=== PATIENT | female | born 1955 | race Caucasian/White ===

== ENCOUNTER → 2022-11-27 09:49 | Outpatient (BNVA) | payer MEDICARE, SELFPAY | PROVIDERS: Family Provider Family Medicine; PCP Family Medicine; Visit Provider Family Medicine | DX: J01.00 Acute maxillary sinusitis, unspecified (principal); J03.90 Acute tonsillitis, unspecified | CPT/HCPCS: 87071; 87400; 87880 ==

== ENCOUNTER 2023-03-09 16:05 | Emergency (ER) | payer MEDICARE, SELFPAY ==
[2023-03-09 16:22] VITALS: BP 197/86; PULSE 73; RESP 16; TEMP 36.7; O2SAT 97
--- NOTE | 2023-03-09 16:31 | ECG_ITS ---
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 Measurements Intervals [place] Rate: 66 P: 69 ND: 157 QRS: 12 QRSD: 132 T: 145 QT: 432 QTc: 456 Interpretive Statements SINUS RHYTHM POSSIBLE RIGHT ATRIAL ENLARGEMENT [0.25mV P-WAVE] POSSIBLE LEFT ATRIAL ENLARGEMENT [-0.1mV P-WAVE IN V1/V2] INTRAVENTRICULAR CONDUCTION DELAY [130+ ms QRS DURATION] LEFT VENTRICULAR HYPERTROPHY AND ST-T CHANGE [VOLTAGE CRITERIA PLUS ST/T ABNORMALITY] Diffuse nonspecific T wave changes POSSIBLE SEPTAL MYOCARDIAL INFARCTION , OF INDETERMINATE AGE [30 ms Q WAVE IN V1/V2] INTERPRETATION BASED ON A DEFAULT AGE OF 40 YEARS No previous ECG available for comparison Electronically Signed On 03-09-2023 23:43:46 CDT by Savanah Dubon M.D. [id number] luis armando
--- NOTE | 2023-03-09 17:24 | CTR_ITS ---
PROCEDURE INFORMATION: Exam: CT Abdomen And Pelvis Without Contrast Exam date and time: 03/09/2023 6:15 PM Age: 67 years old Clinical indication: Abdominal pain; Generalized; Prior surgery; Surgery date: 6+ months; Surgery type: Hyst, 2x TECHNIQUE: Imaging protocol: Computed tomography of the abdomen and pelvis without contrast. Radiation optimization: All CT scans at this facility use at least one of these dose optimization techniques: automated exposure control; mA and/or kV adjustment per patient size (includes targeted exams where dose is matched to clinical indication); or iterative reconstruction. REPORTING DATA: Count of CT and Cardiac NM exams in prior 12 months: This patient has received 0 known CTs and 0 known cardiac nuclear medicine studies in the 12 months prior to the current study. COMPARISON: CR (CHEST, ) 03/09/2023 5:47 PM RADIATION DOSE METRICS: Total DLP (mGy-cm): 495.43 FINDINGS: Liver: Normal. No mass. Gallbladder and bile ducts: Normal. No calcified stones. No ductal dilation. Pancreas: Normal. No ductal dilation. Spleen: Normal. No splenomegaly. Adrenal glands: Normal. No mass. Kidneys and ureters: Left kidney punctate nonobstructing calyceal stone. Stomach and bowel: Prominent fluid in the small bowel without dilation may reflect an enteritis. Constipation. Appendix: No evidence of appendicitis. Intraperitoneal space: Unremarkable. No free air. No significant fluid collection. Vasculature: Unremarkable. No abdominal aortic aneurysm. Lymph nodes: Unremarkable. No enlarged lymph nodes. Urinary bladder: Unremarkable as visualized. Reproductive: Unremarkable as visualized. Bones/joints: Unremarkable. No acute fracture. Soft tissues: Unremarkable. Right lung bulla incompletely visualized. CT/CT abdomen pelvis wo con [id number] IMPRESSION: 1. Negative for acute inflammatory process in the or pelvis. 2. Prominent fluid in the small bowel without dilation may reflect an enteritis. 3. Constipation. 4. Left kidney punctate nonobstructing calyceal stone. 5. Right lung bulla incompletely visualized.
--- NOTE | 2023-03-09 17:24 | XRR_ITS ---
PROCEDURE INFORMATION: Exam: XR Chest Exam date and time: 03/09/2023 5:47 PM Age: 67 years old Clinical indication: Cough; Additional info: Dyspnea/cough TECHNIQUE: Imaging protocol: Radiologic exam of the chest. Views: 1 view. COMPARISON: No relevant prior studies available. FINDINGS: Lungs: Unremarkable. No consolidation. Pleural spaces: Unremarkable. No pleural effusion. No pneumothorax. Heart/Mediastinum: Unremarkable. No cardiomegaly. Bones/joints: Unremarkable. XR/XR chest 1V portable [id number] IMPRESSION: No acute findings.
--- NOTE | 2023-03-09 17:30 | W.ED.ABDPA2 ---
Documented by User: Jaycob Brar DO 03/10/23 04:52 HPI - Abdominal Pain General: Chief Complaint: Abdominal Pain Stated Complaint: abd pains, Weakness, Black Stool Time Seen by Provider: 03/09/23 17:24 Source: patient Mode of arrival: ambulatory History of Present Illness: 67-year-old female presents to the emergency room complaining of abdominal pain for last 2 weeks with nausea and vomiting she been taking Pepto-Bismol and then milk of magnesia states he had not had any relief with those she switched from Pepto-Bismol to milk of magnesia because she was not having regular bowel movements now she is began having black stools. She has worse pain with eating. She not had any hematemesis or coffee-ground emesis. No previous history of GI bleeds. She do she uses regularly use medical marijuana. Previous abdominal history includes C-sections and hysterectomy. She has noticed her symptoms are worse when she eats. MD elicited complaint: abdominal pain Onset (ago): week(s) (2) Pain Consistency: intermittent Location: Epigastric Quality: cramping Exacerbating factors: nothing Relieving factors: nothing Associated Symptoms: Reports change in stool character, GI cramping, dyspepsia, melena (Black), nausea and poor appetite; Denies anorexia, belching, bloating, change in bowel habits, chills, coffee ground emesis, constipation, diarrhea, dysuria, excessive flatus, fever(s), heartburn, hematochezia, hematuria, hematemesis, fecal incontinence, loose stools, syncope and vomiting Review of Systems Const: Denies: fever(s) or chills Card: Denies: syncope GI: Reports: nausea, GI cramping, change in stool character and melena (Black); Denies: vomiting, hematemesis, coffee ground emesis, heartburn, diarrhea, constipation, bloating, belching, excessive flatus, fecal incontinence, change in bowel habits or hematochezia : Denies: dysuria or hematuria PFSH ED PFSH: Social History Smoking and tobacco status: current every day smoker cigarettes Alcohol intake: never Physical Exam Const: GENERAL APPEARANCE: cooperative and comfortable ORIENTATION/CONSCIOUSNESS: Yes awake, Yes oriented to person, Yes oriented to place and Yes oriented to time HENMT: COMMON NORMALS: normocephalic, atraumatic and hearing grossly normal bilaterally HEAD & SCALP: normocephalic and atraumatic Resp: COMMON NORMALS: normal respiratory effort, No retractions, No use of accessory muscles and clear to auscultation bilaterally AUSCULTATION: clear to auscultation bilaterally Cardio: COMMON NORMALS: regular rate, regular rhythm and No murmurs present (Cardio) RATE: regular rate RHYTHM: regular rhythm GI: COMMON NORMALS: Soft to palpation and No hepatosplenomegaly present AUSCULTATION: Yes normoactive bowel sounds PALPATION: Yes Soft to palpation, No Tenderness to palpation present (GI), No Guarding due to palpation present (GI) and Yes No hepatosplenomegaly present Extremity: COMMON NORMALS: normal to inspection, capillary refill normal, no clubbing, cyanosis or edema, no calf tenderness and no pedal edema Neuro: SENSORIUM/ORIENTATION: Yes oriented to person, Yes oriented to place and Yes oriented to time Skin: COMMON NORMALS: no rashes or lesions noted GENERAL SKIN EXAM: no rashes or lesions noted Course Vital Signs: Vital signs: Vital Signs Temperature 98.0 F 03/09/23 16:22 Pulse Rate 66 03/09/23 19:03 Respiratory Rate 17 03/09/23 19:03 Blood Pressure 194/90 03/09/23 19:03 Pulse Oximetry 94 03/09/23 19:03 MDM - Abdominal Pain Medical Decision Making Care signed out to Dr. Castanon at change of shift. See final notes for diagnosis and disposition. Patient presents abdominal pain she is also concerned of GI bleed she had black stools. She had been taking Pepto-Bismol is likely cause for her black stools her BUN to creatinine ratio here is normal her hemoglobin is normal I did a rectal exam showed brown stool was Hemoccult negative. CT scan does show a enteritis with constipation likely causing her pain she has no signs of acute surgical abdomen she is stable for discharge at this time we will place her on MiraLAX Zofran she is to follow-up with PCP and return if worsening. Lab Data 03/09/23 17:30 03/09/23 17:30 Labs/Radiology: Radiology Impressions Abdomen/Pelvis CT 03/09/23 17:24 IMPRESSION: 1. Negative for acute inflammatory process in the or pelvis. 2. Prominent fluid in the small bowel without dilation may reflect an enteritis. 3. Constipation. 4. Left kidney punctate nonobstructing calyceal stone. 5. Right lung bulla incompletely visualized. Chest X-Ray 03/09/23 17:24 IMPRESSION: No acute findings. Laboratory Results WBC 8.9 10^3/uL (4.0-10.0) 03/09/23 17: RBC 5.33 10^6/uL (4.1-5.3) H 03/09/23 17:30 Hgb 15.4 g/dL (11.5-15.3) H 03/09/23: Hct 46.7 % (37.0-47.0) 03/09/23: MCV 87.6 fl (81-99) 03/09/23: MCH 28.9 pg (28.0-34.0) 03/09/23: MCHC 33.0 g/dL (30.0-36.0) 03/09/23: RDW 13.2 % (12.1-15.1) 03/09/23: Plt Count 207 10^3/cmm (130-400) 03/09/23: MPV 11.0 fL (7.4-10.4) H 03/09/23 17: Neut % (Auto) 56.5 % 03/09/23: Lymph % (Auto) 34.2 % 03/09/23: [place] % (Auto) 8.0 % 03/09/23: Eos % (Auto) 0.7 % 03/09/23: Baso % (Auto) 0.4 % 03/09/23:30 Neut # (Auto) 5.03 10^3/uL (1.8-7.7) 03/09/23: Lymph # (Auto) 3.1 10^3/uL (0.8-4.8) 03/09/23 17:30 [place] # (Auto) 0.7 10^3/uL (0.2-0.9) 03/09/23 17:30 Eos # (Auto) 0.1 10^3/uL (0.0-0.8) 03/09/23 17:30 Baso # (Auto) 0.0 10^3/uL (0.0-0.1) 03/09/23 17:30 Nucleated RBC % (auto) 0 % 03/09/23 17:30 Nucleated RBCs # 0.0 /100WBC 03/09/23 17:30 Sodium 135 mmol/L (136-145) L 03/09/23 17:30 Potassium 3.7 mmol/L (3.5-5.1) 03/09/23 17:30 Chloride 95 mmol/L (98-107) L 03/09/23 17:30 Carbon Dioxide 31 mmol/L (22-29) H 03/09/23 17:30 Anion Gap 12.7 (5-19) 03/09/23 17:30 BUN 11 mg/dL (8-23) 03/09/23 17:30 Creatinine 0.7 mg/dL (0.5-0.9) 03/09/23 17:30 GFR Calculation 83.7 mL/min (90-130) L 03/09/23 17:30 Glucose 120 mg/dL (65-115) H 03/09/23 17:30 Calculated Osmolality 281 mOsm/kg (285-295) L 03/09/23 17:30 Calcium 9.3 mg/dL (8.5-10.5) 03/09/23 17:30 Total Bilirubin 0.2 mg/dL (0.15-1.2) 03/09/23 17:30 AST 18 U/L (0-32) 03/09/23 17:30 ALT 10 U/L (0-33) 03/09/23 17:30 Alkaline Phosphatase 94 U/L (35-105) 03/09/23 17:30 Total Protein 7.7 g/dL (6.6-8.7) 03/09/23 17:30 Albumin 4.4 g/dL (3.5-5.2) 03/09/23 17:30 Globulin 3.3 g/dL (1.3-4.6) 03/09/23 17:30 Urine Color Yellow (Yellow) 03/09/23 16:14 Urine Appearance Clear (CLEAR) 03/09/23 16:14 Urine pH 9 (5-7) H 03/09/23 16:14 Ur Specific [place] 1.015 (1.005-1.030) 03/09/23 16:14 Urine Protein Neg (Negative) 03/09/23 16:14 Urine Glucose (UA) Norm (Normal) 03/09/23 16:14 Urine Ketones Negative (Negative) 03/09/23 16:14 Urine Blood Neg (Negative) 03/09/23 16:14 Urine Nitrate Negative (Negative) 03/09/23 16:14 Urine Bilirubin Neg (Negative) 03/09/23 16:14 Prot Sulfosalicylic Acd Negative (Negative) 03/09/23 16:14 Urine Urobilinogen Neg mg/dL (Negative) 03/09/23 16:14 Ur Leukocyte Esterase Negative (Negative) 03/09/23 16:14 Discharge Plan Discharge Patient Disposition: Home Clinical Impression: Abdominal pain, Constipation Condition: Stable Prescriptions: New ondansetron 4 mg tablet,disintegrating 4 mg PO Q6H PRN (Reason: nausea and vomiting) Qty: 14 0RF Miralax 17 gram powder in packet 17 g PO DAILY PRN (Reason: constipation) Qty: 14 0RF No Action Medical marijuana PO Discharge Orders: Discharge ED (Routine); Ordered 03/09/23 Ordered By: Nicolás Castanon Referrals: Bradley Antunez MD [Primary Care Provider] - 1-3 days Discharge Diet: Advance as tolerated Discharge Activity: Resume usual activity Patient Instructions: Constipation (ED), Abdominal Pain (ED) Coding Level of Care Code ED Environmental Field Office Manager for Chg Fwd Documented by User: Nicolás Castanon MD 03/09/23 18:58 HPI - Abdominal Pain General: Chief Complaint: Abdominal Pain Stated Complaint: abd pains, Weakness, Black Stool Time Seen by Provider: 03/09/23 17:24 PFSH ED PFSH: Social History Smoking and tobacco status: current every day smoker cigarettes Alcohol intake: never Course Vital Signs: Vital signs: Vital Signs Temperature 98.0 F 03/09/23 16:22 Pulse Rate 66 03/09/23 19:03 Respiratory Rate 17 03/09/23 19:03 Blood Pressure 194/90 03/09/23 19:03 Pulse Oximetry 94 03/09/23 19:03 MDM - Abdominal Pain Medical Decision Making Patient presents abdominal pain she is also concerned of GI bleed she had black stools. She had been taking Pepto-Bismol is likely cause for her black stools her BUN to creatinine ratio here is normal her hemoglobin is normal I did a rectal exam showed brown stool was Hemoccult negative. CT scan does show a enteritis with constipation likely causing her pain she has no signs of acute surgical abdomen she is stable for discharge at this time we will place her on MiraLAX Zofran she is to follow-up with PCP and return if worsening. Medical Records I reviewed the patient's medical records. Lab Data I reviewed the patient's lab results. 03/09/23 17:30 03/09/23 17:30 Labs/Radiology: Radiology Impressions Abdomen/Pelvis CT 03/09/23 17:24 IMPRESSION: 1. Negative for acute inflammatory process in the or pelvis. 2. Prominent fluid in the small bowel without dilation may reflect an enteritis. 3. Constipation. 4. Left kidney punctate nonobstructing calyceal stone. 5. Right lung bulla incompletely visualized. Chest X-Ray 03/09/23 17:24 IMPRESSION: No acute findings. Laboratory Results WBC 8.9 10^3/uL (4.0-10.0) 03/09/23 17:30 RBC 5.33 10^6/uL (4.1-5.3) H 03/09/23 17:30 Hgb 15.4 g/dL (11.5-15.3) H 03/09/23 17:30 Hct 46.7 % (37.0-47.0) 03/09/23 17:30 MCV 87.6 fl (81-99) 03/09/23 17:30 MCH 28.9 pg (28.0-34.0) 03/09/23 17:30 MCHC 33.0 g/dL (30.0-36.0) 03/09/23 17:30 RDW 13.2 % (12.1-15.1) 03/09/23 17:30 Plt Count 207 10^3/cmm (130-400) 03/09/23 17:30 MPV 11.0 fL (7.4-10.4) H 03/09/23 17:30 Neut % (Auto) 56.5 % 03/09/23 17:30 Lymph % (Auto) 34.2 % 03/09/23 17: [place] % (Auto) 8.0 % 03/09/23 17: Eos % (Auto) 0.7 % 03/09/23 17:30 Baso % (Auto) 0.4 % 03/09/23: Neut # (Auto) 5.03 10^3/uL (1.8-7.7) 03/09/23: Lymph # (Auto) 3.1 10^3/uL (0.8-4.8) 03/09/23: [place] # (Auto) 0.7 10^3/uL (0.2-0.9) 03/09/23: Eos # (Auto) 0.1 10^3/uL (0.0-0.8) 03/09/23 17: Baso # (Auto) 0.0 10^3/uL (0.0-0.1) 03/09/23: Nucleated RBC % (auto) 0 % 03/09/23: Nucleated RBCs # 0.0 /100WBC 03/09/23 17:30 Sodium 135 mmol/L (136-145) L 03/09/23 17:30 Potassium 3.7 mmol/L (3.5-5.1) 03/09/23 17: Chloride 95 mmol/L (98-107) L 03/09/23 17:30 Carbon Dioxide 31 mmol/L (22-29) H 03/09/23 17:30 Anion Gap 12.7 (5-19) 03/09/23 17:30 BUN 11 mg/dL (8-23) 03/09/23 17:30 Creatinine 0.7 mg/dL (0.5-0.9) 03/09/23 17:30 GFR Calculation 83.7 mL/min (90-130) L 03/09/23 17:30 Glucose 120 mg/dL (65-115) H 03/09/23 17:30 Calculated Osmolality 281 mOsm/kg (285-295) L 03/09/23 17:30 Calcium 9.3 mg/dL (8.5-10.5) 03/09/23 17:30 Total Bilirubin 0.2 mg/dL (0.15-1.2) 03/09/23 17:30 AST 18 U/L (0-32) 03/09/23 17:30 ALT 10 U/L (0-33) 03/09/23 17:30 Alkaline Phosphatase 94 U/L (35-105) 03/09/23 17:30 Total Protein 7.7 g/dL (6.6-8.7) 03/09/23 17:30 Albumin 4.4 g/dL (3.5-5.2) 03/09/23 17:30 Globulin 3.3 g/dL (1.3-4.6) 03/09/23 17:30 Urine Color Yellow (Yellow) 03/09/23 16:14 Urine Appearance Clear (CLEAR) 03/09/23 16:14 Urine pH 9 (5-7) H 03/09/23 16:14 Ur Specific [place] 1.015 (1.005-1.030) 03/09/23 16:14 Urine Protein Neg (Negative) 03/09/23 16:14 Urine Glucose (UA) Norm (Normal) 03/09/23 16:14 Urine Ketones Negative (Negative) 03/09/23 16:14 Urine Blood Neg (Negative) 03/09/23 16:14 Urine Nitrate Negative (Negative) 03/09/23 16:14 Urine Bilirubin Neg (Negative) 03/09/23 16:14 Prot Sulfosalicylic Acd Negative (Negative) 03/09/23 16:14 Urine Urobilinogen Neg mg/dL (Negative) 03/09/23 16:14 Ur Leukocyte Esterase Negative (Negative) 03/09/23 16:14 Other Data I personally reviewed and interpreted the following: labs, ct scan Discharge Plan Discharge Patient Disposition: Home Clinical Impression: Abdominal pain, Constipation Condition: Stable Prescriptions: New ondansetron 4 mg tablet,disintegrating 4 mg PO Q6H PRN (Reason: nausea and vomiting) Qty: 14 0RF Miralax 17 gram powder in packet 17 g PO DAILY PRN (Reason: constipation) Qty: 14 0RF No Action Medical marijuana PO Discharge Orders: Discharge ED (Routine); Ordered 03/09/23 Ordered By: Nicolás Castanon Referrals: Bradley Antunez MD [Primary Care Provider] - 1-3 days Discharge Diet: Advance as tolerated Discharge Activity: Resume usual activity Patient Instructions: Constipation (ED), Abdominal Pain (ED) Coding Level of Care Code ED Environmental Field Office Manager for Ahmet Waggoner
[2023-03-09 17:40] LABS: Basophils % 0.4 %; Eosinophils # 0.1 10^3/uL (0.0-0.8); Eosinophils % 0.7 %; Hematocrit 46.7 % (37.0-47.0); Hemoglobin 15.4 g/dL (11.5-15.3); Lymphocytes # 3.1 10^3/uL (0.8-4.8); Lymphocytes % 34.2 %; Mean Corpuscular Hemoglobin 28.9 pg (28.0-34.0); Mean Corpuscular Volume 87.6 fl (81-99); Monocytes # 0.7 10^3/uL (0.2-0.9); Neutrophils # 5.03 10^3/uL (1.8-7.7); Neutrophils % 56.5 %; Nucleated Red Blood Cells % 0 %; Platelet Count 207 10^3/cmm (130-400); Red Blood Count 5.33 10^6/uL (4.1-5.3); Red Cell Distribution Width 13.2 % (12.1-15.1); White Blood Count 8.9 10^3/uL (4.0-10.0)
[2023-03-09 17:54] LABS: Add Urine Microscopic? NO; Charge for UA Resulting for Rev
[2023-03-09 18:04] VITALS: BP 200/88; PULSE 61; RESP 12; O2SAT 96
--- NOTE | 2023-03-09 18:04 | PC.NURSE ---
PT PLACED ON CONTINUOUS NIBP,SPO2, AND CM
[2023-03-09 18:07] LABS: Alanine Aminotransferase 10 U/L (0-33); Albumin Level 4.4 g/dL (3.5-5.2); Alkaline Phosphatase 94 U/L (35-105); Anion Gap 12.7 (5-19); Aspartate Amino Transferase 18 U/L (0-32); Blood Urea Nitrogen 11 mg/dL (8-23); Calcium 9.3 mg/dL (8.5-10.5); Carbon Dioxide 31 mmol/L (22-29); Chloride 95 mmol/L (98-107); Creatinine Clr Calc Pharmacy 64.8451; Globulin 3.3 g/dL (1.3-4.6); Glomerular Filtration Rate 83.7 mL/min (90-130); Glucose 120 mg/dL (65-115); Osmolality Calculated 281 mOsm/kg (285-295); Potassium 3.7 mmol/L (3.5-5.1); Sodium 135 mmol/L (136-145); Total Bilirubin 0.2 mg/dL (0.15-1.2); Total Protein 7.7 g/dL (6.6-8.7)
[2023-03-09 18:09] LABS: Urine Appearance Clear (CLEAR); Urine Color Yellow (Yellow)
[2023-03-09 18:10] LABS: Bilirubin Urine Neg (Negative); Blood Urine Neg (Negative); Glucose Urine UA Norm (Normal); Ketones Urine Negative (Negative); Leukocyte Esterase Urine Negative (Negative); Nitrate Urine Negative (Negative); Protein Urine Neg (Negative); Specific Gravity, Urine 1.015 (1.005-1.030); Sulfosalicylic Acid Urine Negative (Negative); Urobilinogen Urine Neg (Negative); pH Urine 9 (5-7)
[2023-03-09] MEDS: hyDRALAzine 20 mg/mL INJ 1 mL 10 MG IVP (18:39)
[2023-03-09 19:03] VITALS: BP 194/90; PULSE 66; RESP 17; O2SAT 94
== END 2023-03-09 19:04 | disposition home or self-care (01) ==
PROVIDERS: Family Medicine; Emergency Provider Emergency Medicine; PCP Family Medicine
DX: R10.9 Unspecified abdominal pain (principal); K59.00 Constipation, unspecified
CPT/HCPCS: 36415; 71045; 74176; 80053; 81003; 85025; 93005; 96374; 99285; J0360

== ENCOUNTER 2023-09-02 17:12 | Outpatient (CLI) | payer MEDICARE, SELFPAY ==
--- NOTE | 2023-09-02 06:24 | MM_ITS ---
WS: [id number] SCREENING DIGITAL TOMOSYNTHESIS MAMMOGRAM WITH CAD HISTORY: Z12.31 - Encounter for screening mammogram for malignant ... COMPARISON: None available. Bilateral CC and MLO with tomosynthesis views submitted. Synthetic mammography reviewed. Computer aid ed detection analyzed. Breast composition: There are scattered areas of fibroglandular density. No suspicious masses, microc alcifications or architectural distortion. IMPRESSION: MM/[place] [id number] BI-RADS: 1-Negative FOLLOW UP: 1 Year Follow-up
== END 2023-09-02 17:13 | disposition home or self-care (01) ==
LOC: MOBLMAM 17:13
PROVIDERS: PCP Nurse Practitioner Family; Visit Provider Nurse Practitioner Family
DX: Z12.31 Encounter for screening mammogram for malignant neoplasm of breast (principal)
CPT/HCPCS: 77063; 77067

== ENCOUNTER → 2023-11-17 09:37 | Outpatient (BNVA) | payer MEDICARE, SELFPAY | PROVIDERS: PCP Nurse Practitioner Family; Referring Provider Nurse Practitioner Family; Visit Provider Surgery | DX: Z12.11 Encounter for screening for malignant neoplasm of colon (principal) | CPT/HCPCS: 99024; 99203 ==

== ENCOUNTER → 2024-06-03 09:32 | Outpatient (BNVA) | payer MEDICARE, SELFPAY | PROVIDERS: PCP Nurse Practitioner Family; Visit Provider Surgery | DX: R19.5 Other fecal abnormalities (principal); Z12.11 Encounter for screening for malignant neoplasm of colon | CPT/HCPCS: 99024; 99214 ==

== ENCOUNTER 2024-07-20 06:38 | Outpatient (CLI) | payer MEDICARE, SELFPAY ==
--- NOTE | 2024-07-20 07:00 | US_ITS ---
WS: [id number] ULTRASOUND SOFT TISSUES LEFT cervical chain. HISTORY: R59.0 - Localized enlarged lymph nodes COMPARISON: None available. TECHNIQUE: 2-D and color Doppler imaging is submitted. Abnormal hypoechoic soft tissue mass along the LEFT cervical chain. This hypoechoic well-circumscribe d mass measures 1.8 x 1.3 x 2.1 cm. There is increased peripheral vascularity. This is probably a lym ph node but there is complete loss of the normal fatty hilum with thickening of the overlying cortex. US/US soft tissue head neck [id number] IMPRESSION: Abnormal mass in the LEFT neck is probably an abnormal lymph node. This needs t o be further evaluated. Recommend neck CT with IV contrast.
== END 2024-07-20 06:39 | disposition home or self-care (01) ==
PROVIDERS: PCP Nurse Practitioner Family; Visit Provider Nurse Practitioner Family
DX: R59.0 Localized enlarged lymph nodes (principal); R22.1 Localized swelling, mass and lump, neck
CPT/HCPCS: 76536; 99213

== ENCOUNTER 2024-08-22 09:11 | Outpatient (CLI) | payer MEDICARE, SELFPAY ==
--- NOTE | 2024-08-22 09:45 | CTR_ITS ---
PROCEDURE INFORMATION: Exam: CT Neck With Contrast Exam date and time: 08/22/2024 10:22 AM Age: 68 years old Clinical indication: Mass, lump, or swelling in neck; Patient HX: Localized swelling, mass on left side of neck x 1 year. Bb placed; Additional info: R22.1 - localized swelling, mass and lump, neck TECHNIQUE: Imaging protocol: Computed tomography of the neck with contrast. Radiation optimization: All CT scans at this facility use at least one of these dose optimization techniques: automated exposure control; mA and/or kV adjustment per patient size (includes targeted exams where dose is matched to clinical indication); or iterative reconstruction. Contrast material: OMNI 350; Contrast volume: 100 ml; Contrast route: INTRAVENOUS (IV); COMPARISON: US soft tissue head neck [id number] 07/20/2024 6:48 AM RADIATION DOSE METRICS: Total DLP (mGy-cm): 190.63 FINDINGS: Brain: No acute findings in the included segments of the intracranial compartment. Orbital cavities: The orbits are normal. Salivary glands: 1.5 x 1.8 x 2.4 cm enhancing mass with central necrotic components within the left parotid gland. Pharynx: Unremarkable. No significant tonsillar enlargement. Prevertebral and retropharyngeal spaces: Unremarkable. Larynx: Unremarkable. Epiglottis is normal. Thyroid: Enlarged and very heterogeneous thyroid gland with mild intrathoracic extension. Follow-up nonemergent thyroid ultrasound is recommended. Trachea: Visualized trachea is unremarkable. Lungs: Unremarkable as visualized. Lymph nodes: Unremarkable. No lymphadenopathy. Bones/joints: Multilevel degenerative changes of the vertebra are present, as manifested by multilevel anterior osteophytes, endplate sclerosis, and multilevel posterior disc osteophyte complexes. Soft tissues: Unremarkable. No significant soft tissue swelling. CT/CT neck w con* [id number] IMPRESSION: 1.5 x 1.8 x 2.4 cm enhancing mass with central necrotic components within the left parotid gland. Differential diagnosis includes: Enlarged intraparotid lymph node versus primary neoplasm such as pleomorphic adenoma, Warthin's tumor, or low-grade mucoepidermoid carcinoma. Follow-up ultrasound and tissue diagnosis recommended. COMMENTS: THIS REPORT CONTAINS FINDINGS THAT MAY BE CRITICAL TO PATIENT CARE. The findings were verbally communicated via telephone conference with NOHEMY Norris at 3:15 PM CDT on 08/22/2024. The findings were acknowledged and understood.
[2024-08-22 10:21] LABS: Blood Urea Nitrogen 14 mg/dL (8-23); Glomerular Filtration Rate 62.5 mL/min (90-130)
[2024-08-22] MEDS: iohexol 350 mg/mL 500 mL Btl (per mL) IV (10:33)
== END 2024-08-22 09:12 | disposition home or self-care (01) ==
LOC: RAD 09:12
PROVIDERS: Radiology Diagnostic Radiology; PCP Nurse Practitioner Family; Visit Provider Nurse Practitioner Family
DX: R22.1 Localized swelling, mass and lump, neck (principal); K11.8 Other diseases of salivary glands; E04.9 Nontoxic goiter, unspecified
CPT/HCPCS: 70491; 82565; 84520

== ENCOUNTER 2024-10-19 11:40 | Outpatient (CLI) | payer MEDICARE, SELFPAY ==
--- NOTE | 2024-10-19 11:40 | MM_ITS ---
WS: [id number] BILATERAL 3D TOMOSYNTHESIS DIGITAL SCREENING MAMMOGRAPHY WITH CAD CLINICAL INFORMATION: SCREENING HISTORY: Screening mammogram. No current complaints. COMPARISON: 2022 TECHNIQUE: Bilateral CC and MLO views. FINDINGS: Scattered fibroglandular densities bilaterally. No suspicious focal mass, asymmetry, calcifications, or architectural distortion. No evidence of malignancy. MM/MM scr BI tomosynthesis [id number] IMPRESSION: DENSITY: There are scattered areas of fibroglandular density. BI-RADS: 1 - Negative. FOLLOW UP: 1 Year Follow-up Recommend return to annual screening mammography.
== END 2024-10-19 11:52 | disposition home or self-care (01) ==
PROVIDERS: PCP Nurse Practitioner Family; Visit Provider Nurse Practitioner Family
DX: Z12.31 Encounter for screening mammogram for malignant neoplasm of breast (principal); R92.323 Mammographic fibroglandular density, bilateral breasts
CPT/HCPCS: 77063; 77067

== ENCOUNTER → 2025-01-02 12:02 | Outpatient (BNVA) | payer MEDICARE, SELFPAY | PROVIDERS: PCP Nurse Practitioner Family; Referring Provider Specialist; Visit Provider Internal Medicine | DX: R94.31 Abnormal electrocardiogram [ECG] [EKG] (principal); R07.9 Chest pain, unspecified | CPT/HCPCS: 93005; 99204 ==

== ENCOUNTER 2025-01-23 06:08 | Outpatient (CLI) | payer MEDICARE, SELFPAY ==
--- NOTE | 2025-01-23 06:15 | USCV_ITS ---
Isabella Rose Age: 69 Gender: F : 1955 Exam Date: 01/23/2025 06:22 Ordering Phys: Sandeep Anaya M.D ([email or web address]) Technologist: Exam Location: [facility] Indication: BP: 120 / 74 HR: 77 Rhythm: Sinus Technical Quality: Adequate MEASUREMENTS (Male / Female) Normal Values 2D ECHO LV Diastolic Diameter PLAX 4.9 cm 4.2 - 5.9 / 3.9 - 5.3 cm IVS Diastolic Thickness 1.2 cm 0.6 - 1.0 / 0.6 - 0.9 cm IVS Systolic Thickness 2.0 cm LVPW Diastolic Thickness 1.3 cm 0.6 - 1.0 / 0.6 - 0.9 cm LVPW Systolic Thickness 1.6 cm LV Ejection Fraction 2D Teich 61.9 % LV Ejection Fraction MOD 4C 52.8 % LV Ejection Fraction MOD 2C 53.2 % LV Ejection Fraction 2C AL 51.5 % LA Diameter 2.2 cm RA Systolic Volume 4C AL 35.0 ml RA Systolic Volume 4C MOD 33.8 ml M-MODE LA Ao Ratio MM 2.0 AV Cusp Separation MM 2.1 cm DOPPLER AV Peak Velocity 101.0 cm/s MV Area PHT 4.0 cm squared Mitral E to A Ratio 0.6 TV Peak Velocity 130.0 cm/s TR Peak Velocity 136.0 cm/s TR Peak Gradient 7.4 mmHg TV Peak E Velocity 101.0 cm/s PV Peak Velocity 101.0 cm/s FINDINGS Left Ventricle Left ventricle is normal size. LV systolic function is normal with EF of 50-55%. No regional wall motion abnormalities are seen. Mild LVH. Grade 1 diastolic dysfunction Right Ventricle Normal in size and function Right Atrium Normal in size Left Atrium Normal in size Mitral Valve Structurally normal valve. Aortic Valve Structurally normal aortic valve. No significant stenosis or regurgitation. Tricuspid Valve Mild tricuspid regurgitation. Insufficient TR jet to calculate RVSP. Pulmonic Valve Not well visualized Pericardium Normal Aorta Normal in size IVC Not well visualized CONCLUSIONS LV systolic function is normal with EF of 50-55% Mild left ventricular hypertrophy Grade 1 diastolic dysfunction Mild tricuspid regurgitation Sandeep Anaya MD (Electronically Signed) Final Date: 03 February 2025 14:57 S
[2025-01-23 07:44] VITALS: BMI 23.0
--- NOTE | 2025-01-23 07:46 | NMCV_ITS ---
NM radha perf SPECT r/s* [id number] Isabella Rose Age: 69 Gender: F : 1955 Exam Date: 01/23/2025 08:40 Ordering Phys: Sandeep Anaya M.D ([email or web address]) Technologist: MARIO Orozco Exam Location: [facility] Indications: CP STRESS TEST Please see separate stress test report in [facility] for full findings IMAGE PROTOCOL Rest/Stress 1 Lexiscan Day Radiopharmaceutical Dose (mCi) Administration Site Administered by Rest: Tc-99m 10.8 IV Gita Quezada CONTENT EDITOR Sestamibi Stress:Tc-99m 32.6 IV Gita Quezada, CONTENT EDITOR Sestamibi Rest: 23-Jan-2025 60 Discovery 630 Stress: 23-Jan-2025 30 Discovery 630 0.4mg Lexiscan. Images obtained in supine and prone position. SPECT RESULTS Technical Quality: Good Raw Data Analysis: Normal Image Corrections: No attenuation or motion correction applied Summed Stress Score: 12 Summed Rest Score: 8 Summed Difference Score: 4 PERFUSION FINDINGS Large area of fixed perfusion defect seen in inferolateral wall. This is consistent with large area of prior infarct in the left circumflex artery territory. Large area of reversible perfusion defect of severe intensity seen in the apical and apical septal luna. This is consistent with large area of ischemia in LAD territory. FUNCTIONAL RESULTS (calculated via Gated SPECT) Stress Image LV EF (%): 42 Stress EDV (mL):142 TID: 0.92 Stress ESV (mL):83 FUNCTIONAL FINDINGS: LV systolic function is mildly reduced with EF of 42%. IMPRESSIONS 1. Abnormal myocardial perfusion imaging with large area of ischemia seen in LAD territory. 2. 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 3. LV systolic function is mildly reduced with EF of 42% Sandeep Anaya MD (Electronically Signed) Final Date: 23 January 2025 11:31 S
--- NOTE | 2025-01-23 07:46 | ECG_ITS ---
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 The perfusion scan will be documented separately. DATA: Baseline heart rate was 65 beats per minute. Baseline blood pressure was 189/109 and millimeters of mercury. Target heart rate was 152. Maximum heart rate achieved was 98. which was 64% of the predicted target heart rate. Maximum blood pressure was 189/109 millimeters of mercury. The reason for ending the test was completion of the protocol. The patient did not experience any symptoms. ELECTROCARDIOGRAM: BASELINE: Sinus rhythm. Normal axis. Otherwise, no ST-T changes suggestive of ischemia noted. No arrhythmia noted. EXERCISE: After Lexiscan injection, no ST-T changes suggestive of ischemic noted. No arrhythmia noted. CONCLUSION: Please note due to baseline abnormality of the EKG specificity and sensitivity of the EKG portion of LexiScan MIBI stress test will be low 1. EKG not suggestive of ischemia 2. Lexiscan injection unremarkable. 3. Perfusion scan will be documented separately. Electronically Signed On 02-12-2025 18:46:16 CDT by STEPHEN TOUSSAINT [email or web address]
[2025-01-23] MEDS: regadenoson 0.4 Mg/5 ml Syringe IVP (09:00)
[2025-01-23] MEDS: ondansetron 2 mg/ML SDV 2 mL 4 MG IVP (09:19)
[2025-01-23 09:23] VITALS: BP 159/91; PULSE 77
== END 2025-01-23 06:09 | disposition home or self-care (01) ==
LOC: RAD 06:08 → CDL 07:26
PROVIDERS: PCP Nurse Practitioner Family; Visit Provider Internal Medicine
DX: R06.02 Shortness of breath (principal); R07.9 Chest pain, unspecified; R93.1 Abnormal findings on diagnostic imaging of heart and coronary circulation; I07.1 Rheumatic tricuspid insufficiency
CPT/HCPCS: 36415; 78452; 93017; 93306; 96374; 96375; A9500; J2405; J2785

== ENCOUNTER 2025-01-30 06:01 | Outpatient (CLI) | payer MEDICARE, SELFPAY ==
[2025-01-30] VITALS (16 sets, daily range): BP systolic 121–225; BP diastolic 52–92; PULSE 62–74; RESP 10–20; TEMP 36.7–37.2; O2SAT 93–97; BMI 23.0
--- NOTE | 2025-01-30 06:00 | XACV_ITS ---
Exam Room: 2 Ht: 160 cm Wt: 59 kg BSA: 1.63 m2 Gender: Female : 1955 Any Known Allergies: Aminophylline Exam Priority: Routine Procedure(s): Procedure Description: Diagnostic procedure Procedure Description: PCI procedure Procedure Description: Coronary IVUS Procedure Description: Drug Eluting Coronary Stent Procedure Description: PTCA Procedure Description: Miscellaneous Procedure Description: ACT Procedure Description: Coronary Angiography Diagnostic Cath Status: Elective Diagnostic Findings * INDICATION: Abnormal stress test/ Pre-op clearance/ Dyspnea on exertion. * Left Main has no significant disease. * Circumflex is large sized dominant vessel. Mid vessel has 40% stenosis. It gives rise to 2 OM branches. OM 2 is a large branch with prior stent. This is patent, at distal edge of the stent, there is 40% stenosis.. * Right Coronary Artery is small sized non-dominant vessel without significant disease. * Mid Left Anterior Descending: chronic total occlusion, NEGIN: 0 flow. Distal vessel fills up with left to left collaterals. This is the territory of large sized ischemia on stress test. * Coronary angiography shows left dominance. PCI Status: Elective PCI Indication: Other Interventional Findings * Procedure detail: We engaged left main artery with XB 3.0 guide catheter. Heparin was administered to maintain anticoagulation. Run-through wire was used to cross totally occluded segment of LAD and was placed in the distal vessel. We then predilated the stenosis with 2.5 x 12 mm semicompliant balloon. This was followed by placement of 2.5 x 30 mm resolute [place] drug-eluting stent in the proximal to mid segment. Another overlapping stent measuring 2.5 x 30 mm was placed in the mid segment. IVUS was performed prior to placement of the stent. Post stenting IVUS was also performed. We postdilated the stents with 2.75 x 27 mm NC balloon. At this time final angiogram was performed that showed excellent stent expansion, no residual stenosis and NEGIN-3 flow. Guidewire and guide catheter were removed. Patient left the Certified Prosthetist in a stable condition.. * Mid Left Anterior Descendin% stenosis treated with a AB TREK 2.50X12 RX BALLOON, LIV R CLAUDIA 2.5X30 VAN, LIV Salazar CLAUDIA 2.5X30 VAN, and LIV RASCON EUPHORA RX [id number] BALLOON. 0% residual stenosis, NEGIN: 3 flow. Conclusions 1. Chronic total occlusion of mid LAD. This is territory of large sized ischemia on stress test. Status post successful revascularization with 2 stents.. 2. Mid Left Anterior Descending was treated with a Balloon, Drug Eluting Stent, Drug Eluting Stent, and Balloon. Recommendations * Dual antiplatelet therapy with aspirin and plavix for atleast 6 months to 1 year. * High intensity statin therapy. * Outpatient cardiology follow up in 2 weeks. Interventional RX Recommendation: PCI w/o planned CABG Diagnostic RX Recommendation: PCI w/o planned CABG Anticoagulation: Heparin Pressures Phase:Rest AO : 108 / 53 ( 74 ) @ 8:10:00 AM 111 / 46 ( 75 ) @ 8:10:00 AM 76 / 38 ( 56 ) @ 8:19:00 AM 87 / 49 ( 65 ) @ 8:27:00 AM 91 / 49 ( 66 ) @ 8:34:00 AM 86 / 45 ( 61 ) @ 8:48:00 AM 171 / 69 ( 100 ) @ 8:50:00 AM LV : 125 / 0 / 8 @ 8:10:00 AM 125 / 0 / 9 @ 8:10:00 AM Valves Phase:DefaultPhase AV : 17.0 @ 9:05:23 AM AV Mean Gradient: 10.0 @ 9:05:23 AM Clinical Evaluation EBL: 5mL-10mL Procedural Details Procedure Consent Obtained. Admit Source: Out Patient. Pre-Procedure Time Out. Identified patient by full name and date of as verbalized by the patient/guarantor. Does the consent match the physician's order: Yes. Accurate & Complete Informed Consent: Yes. Inpatient/Outpatient History & Physical on Chart: Yes. If H&P is completed, is and addenduem needed: No; If yes, is the addendum complete: N/A. Visualize and Verify Site with Patient/Guarantor: N/A. Relevant Radiology Images available: Yes. The risks, benefits, and alternatives of sedation and/or procedure were discussed by physician. The patient agrees to continue. Procedure started. [facility] Clinical Fraility Score: 3: Managing Well. Certified Prosthetist Indications: Worsening Angina. Chest Pain Symptom Assessment: Typical Angina Symptoms. Correct patient, site and procedure confirmed by cath team. Current diagnosis: Chest Pain, Abnormal stress test. PERRLA. Strong, equal hand incident response consultant bilaterally. Lungs clear x 5 lobes. IV Site on Arrival: 20 gauge in the left anticubital. IV Fluids: 0.9% NaCl at KVO. 0 mL infused prior to r and d lab technician. Pre Procedural Pulses: bilateral radial was 1+. Pre Procedural Pulses: bilateral posterior tibial was Doppled. Pre Procedural Pulses: bilateral dorsalis pedis was 1+. Oxygen started at 2liters/min via nasal canula. right radial was prepped with chloroprep then draped in the usual sterile fashion. right groin was prepped with chloroprep then draped in the usual sterile fashion. Physician notified. Physician arrived. Baseline sample Acquired. HR: 65 BPM. Physician scrubbed in. Immediate Pre-Procedure Time Out. Correct Patient: Yes; Correct Procedure: Yes; Correct Site: Yes; Correct Patient Position: Yes; Correct Supplies: Yes; Dried Flammable Prep: Yes; Blood Products Available: No;. Lidocaine 1% infiltrated to the right radial. Ultrasound obtained to assist with arterial access. Arterial access obtained. A 5 georgian TIG catheter in over wire. EDP Sample taken: LV 125/0,8; HR: 65 BPM; SpO2: 99%. Pullback taken: LV 125/0,9; AO 108/53(74); Mean: 10mmHg, Peak to Peak: 17mmHg, SEP: 18sec/min; HR: 65 BPM; SpO2: 98%. Multiple views taken of left coronary artery. Catheter redirected to the RCA. Multiple views taken of right coronary artery. Catheter removed over the exchange wire. Add inventory: Co-mapping pilot, Endoflator. 6 georgian XB 3 guide catheter was inserted over the wire. Runthrough guidewire was advanced through the guide catheter to lesion in the mid LAD. Balloon inserted to lesion in the mid LAD. Inflation number : 1 A AB TREK 2.50X12 RX BALLOON was prepped and advanced across the Mid LAD , then inflated to 8 MAYRA for 0:04 seconds. Inflation number: 2 The AB TREK 2.50X12 RX BALLOON was reinflated across the Mid LAD, to 8 MAYRA for 0:08 seconds. Inflation number: 3 The AB TREK 2.50X12 RX BALLOON was reinflated across the Mid LAD, to 10 MAYRA for 0:12 seconds. Inflation number: 4 The AB TREK 2.50X12 RX BALLOON was reinflated across the Mid LAD, to 8 MAYRA for 0:09 seconds. Balloon out. Results checked. IVUS catheter in OTW to LAD. IVUS performed of mid LAD. Stent inserted to lesion in the mid LAD. Inflation Number : 5 A MDT R CLAUDIA 2.5X30 VAN -Lot Number# [id number] EXP 09-06-2027 was prepped and advanced across the Mid LAD. The stent was deployed at 12 MAYRA for 0:16 seconds. Stent balloon out over wire. Results checked. Stent inserted to lesion in the mid LAD. Undeployed stent out OTW. 6fr Guideliner catheter in over wire. Stent inserted to lesion in the mid LAD. Inflation Number : 6 A MDT R CLAUDIA 2.5X30 VAN -Lot Number# [id number] 09-06-2027 was prepped and advanced across the Mid LAD. The stent was deployed at 12 MAYRA for 0:11 seconds. Inflation number: 7 The stent balloon was then re-inflated across the Mid LAD to 12 MAYRA for 0:04 seconds. Stent balloon out over wire. Balloon inserted to lesion in the mid LAD. Inflation number : 8 A MDT NC EUPHORA RX [id number] BALLOON was prepped and advanced across the Mid LAD , then inflated to 12 MAYRA for 0:08 seconds. Inflation number: 9 The MDT ABIODUN EUPHORA RX 2.03J87SI BALLOON was reinflated across the Mid LAD, to 14 MAYRA for 0:09 seconds. Balloon out. Guideliner out OTW. Results checked. IVUS catheter in OTW. IVUS performed of LAD. IVUS catheter out OTW. Results checked. ACT drawn. Results out of range high result seconds. Therapeutic limits - pre-heparin administration 90-150 seconds and monitoring heparin during a vascular procedure >250 seconds. Results checked. Wire out. Results checked. Guide catheter out. Post Procedure: Pulses reassessed and unchanged. PERRLA. Strong, equal hand incident response consultant bilaterally. No VTE prophylaxis required. Medication's Wasted: Lidocaine 1% = 18 mL. Medication's Wasted: Nitro = 49.6 mg. Medication's Wasted: Other = Fentanyl 100mcg, Versed 1 mg. Total IV fluids: 500 mL. ACT drawn. Results 296 seconds. Therapeutic limits - pre-heparin administration 90-150 seconds and monitoring heparin during a vascular procedure >250 seconds. A TR Band was successful obtaining hemostatsis at the Right Radial artery insertion site. 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 Complications: None. Estimated blood loss: 5mL-10mL. Responsiveness - Normal response to verbal stimuli; alert and oriented, PERRLA. Airway - Unaffected, no intervention required; spontaneous ventilation. Circulation: W/N/L, pulses unchanged. Nausea/Vomiting: Yes. Procedure completed. Patient transferred by wheelchair to CPRU. Vital chart was stopped. Access Site Site: Right Radial artery Sheath Size: 6 Fr Hemostasis Method: TR Band Hemostasis Success: Successful Procedure Medications Start: 7:56 AM Stop: 7:56 AM Medication: Hydralazine Amount: 20 mg Route: I.V. Start: 7:59 AM Stop: 7:59 AM Medication: Versed Amount: 1 mg Route: I.V. Start: 8:08 AM Stop: 8:08 AM Medication: Nitrogylcerin Amount: 200 mcg Route: I.A. Start: 8:09 AM Stop: 8:09 AM Medication: Heparin Amount: 5000 units Route: I.V. Start: 8:19 AM Stop: 8:19 AM Medication: 0.9% Saline Amount: 250 ml Route: I.V. bolus Start: 8:19 AM Stop: 8:19 AM Medication: Heparin Amount: 1000 units Route: I.V. Start: 8:44 AM Stop: 8:44 AM Medication: 0.9% Saline Amount: 250 ml Route: I.V. bolus Start: 8:49 AM Stop: 8:49 AM Medication: Neosynephrine Amount: 100 mcg Route: I.V. Start: 8:51 AM Stop: 8:51 AM Medication: Nitrogylcerin Amount: 200 mcg Route: I.C. Start: 8:53 AM Stop: 8:53 AM Medication: Plavix Amount: 600 mg Route: P.O. Start: 8:57 AM Stop: 8:57 AM Medication: Zofran (ondansetron) Amount: 4 mg Route: I.V. I, the attending physician, have reviewed and verified all procedure medications. Yes, all medications given per verbal order History/Risk Factors Hypertension: Yes Dyslipidemia: No Peripheral Arterial Disease (PAD): No Myocardial Infarction (WI): No Obesity: No Renal Disease: No Tobacco Use: Current/Recent(w/in 1 year) Prior Interventions PCI: Yes CABG: No Valve Surgery: No Report Signatures Finalized by Sandeep Anaya MD on 02/05/2025 01:32 PM
[2025-01-30 06:29] LABS: Basophils # 0.1 10^3/uL (0.0-0.1); Basophils % 0.6 %; Eosinophils # 0.1 10^3/uL (0.0-0.8); Eosinophils % 1.6 %; Hematocrit 45.7 % (36-47); Lymphocytes # 2.7 10^3/uL (0.8-4.8); Lymphocytes % 32.1 %; Mean Corpuscular HGB Conc 33.7 g/dL (30-55); Mean Corpuscular Hemoglobin 29.5 pg (27-33); Mean Corpuscular Volume 87.5 fl (85-98); Mean Platelet Volume 10.3 fL (7.4-10.4); Monocytes # 0.6 10^3/uL (0.2-0.9); Monocytes % 7.5 %; Neutrophils # 4.81 10^3/uL (1.8-7.7); Nucleated Red Blood Cells % 0 %; Platelet Count 202 10^3/cmm (157-399); Red Blood Count 5.22 10^6/uL (3.85-5.65); Red Cell Distribution Width 12.6 % (12.1-15.1); White Blood Count 8.29 10^3/uL (3.29-11.43)
[2025-01-30] MEDS: aspirin 325 mg Tablet PO (06:33)
[2025-01-30] MEDS: diphenhydrAMINE 50 mg Capsule PO (06:33)
[2025-01-30 06:51] LABS: Blood Urea Nitrogen 15 mg/dL (8-23); Calcium 9.6 mg/dL (8.5-10.5); Carbon Dioxide 28 mmol/L (22-29); Chloride 98 mmol/L (98-107); Creatinine Clr Calc Pharmacy 51.9698; Glomerular Filtration Rate 62.3 mL/min (90-130); Glucose 110 mg/dL (65-115); Osmolality Calculated 283 mOsm/kg (285-295); Sodium 136 mmol/L (136-145)
--- NOTE | 2025-01-30 07:55 | W.PM.OPSUD ---
Surgery/Procedure H&P Update DATE OF PROCEDURE: January 30, 2025 DATE H&P PERFORMED: 01/02/25 H&P UPDATE INFORMATION: I have reviewed H&P completed within last 30 days, I have examined patient prior to procedure and No changes to prior documentation PREOP DIAGNOSIS: Pre-op clearance/ abnormal stress test PRIMARY INDICATION FOR PROCEDURE: Pre-op clearance/ abnormal stress test PLANNED PROCEDURE: Operation Date: 01/30/25 07:00 Proposed Procedures p Cardiac Catheterization - [facility] w/wo LV & Coros(Left) - Sandeep Anaya M.D Possible percutaneous coronary intervention PATIENT REASSESSED PRIOR TO SEDATION, WITH NO CHANGE NOTED: Yes PHYSICAL EXAM: alert, oriented x 3, clear to auscultation bilaterally and regular rate & rhythm AIRWAY EVAL/ANESTHESIA PLAN: normal airway, ASA III, Local Anesthesia, Risks, benefits & alternatives of sedation and/or procedure discussed and Patient agrees to continue as planned ADDITIONAL INFORMATION: Moderate sedation
--- NOTE | 2025-01-30 08:57 | PM.PROC ---
Procedure Note: Date of procedure: 01/30/25 Pre-procedure diagnosis: Abnormal stress test/ Pre-op clearance Post-procedure diagnosis: other (Chronic total occlusion of mid LAD s/p PCI with 2 stents) Procedure: Left main artery is patent. Proximal to mid LAD is has chronic total occlusion. Status post successful revascularization with 2 stents. Left circumflex artery is patent. OM vessel has a prior stent. Distal to that has moderate stenosis. RCA is a small sized nondominant vessel. Performing Provider: Sandeep Anaya Complications: None Condition: stable Disposition: floor Coding Level of Care Code Acute Code for Ahmet Waggoner
--- NOTE | 2025-01-30 10:56 | PC.NURSE ---
Patient arrived on the floor at 1008 am with Osei Amador RN at bedside. TR band in place with 14ml. No hematoma noted. Patient situated in bed and hooked to telemetry. Family member at bedside. All vitals WNL.
[2025-01-30] MEDS: sodium chloride 0.9% 1,000 ML 100 ML IV (11:28)
[2025-01-30] MEDS: amlodipine 10 mg Tablet PO (17:25)
[2025-01-30] MEDS: atorvastatin 40 mg Tablet PO (19:25)
[2025-01-30] MEDS: temazepam 15 mg Capsule PO (19:25)
--- NOTE | 2025-01-30 19:27 | PC.NURSE ---
Patient is s/p [facility] with right radial access. Dressing in place remains c,d,i without s/s of bleeding or hematoma formation observed. Patient does have some mild tenderness with palpation to site. Denies other needs or pains. Will continue to monitor.
[2025-01-31 05:48] VITALS: PULSE 63
[2025-01-31 07:03] VITALS: BP 170/81; PULSE 73; RESP 16; O2SAT 95
[2025-01-31] MEDS: amlodipine 10 mg Tablet PO (08:19)
[2025-01-31] MEDS: clopidogrel 75 mg Tablet PO (08:19)
[2025-01-31] MEDS: aspirin 81 mg EC Tablet PO (08:20)
--- NOTE | 2025-01-31 08:40 | P.SS_ITS ---
<Statement entered by Sandeep Anaya M.D - 02/01/25 07:54> Patient was evaluated and cared for in conjunction with an advanced practice practitioner.? I personally examined the patient and reviewed the chart and all pertinent data including imaging, telemetry, and laboratory results.? I discussed the patient in detail with the advanced practice practitioner.? Please see? their note for complete short stay summary. GENERAL: Patient is alert, awake and oriented x3. HEART: Regular S1 and S2 LUNGS: Clear to auscultate bilaterally. CENTRAL NERVOUS SYSTEM: Grossly nonfocal. EXTREMITIES: Lower extremities with out edema bilaterally. Short Stay Summary Providers Date of Admit/Discharge: 01/31/25 Attending Provider: Sandeep Anaya M.D Primary Care Provider: Donna Bustamante NP Chief Complaint: R94.39 HPI History of Present Illness Isabella Rose is a 69 year old female with past medical history of CAD and hypertension was referred for preoperative clearance prior to parotidectomy, underwent stress test which showed large fixed defects in the inferolateral wall consistent with prior infarct in left circumflex territory, also a large reversible perfusion defect of severe intensity in the apical and apical septal luna consistent with large area of ischemia in the LAD territory, LVEF 42%. Review of Systems Card: Denies: chest pain, palpitations, irregular heart rhythm, edema, swelling of feet/ankles, lightheadedness, syncope, pre-syncope, dyspnea on exertion, orthopnea or leg pain with exertion Resp: Denies: dyspnea, productive cough or non-productive cough GI: Denies: hematochezia : Denies: hematuria John/Lymph: Denies: easy bleeding Home Meds/Allergies Home Medications and Allergies Home Medications ?Medication ?Instructions ?Recorded ?Confirmed ?Type Medical marijuana 1 pill PO BEDTIME 06/04/21 0 01/30/25 History cholecalciferol (vitamin D3) 50 50 mcg PO DAILY 01/30/25 History mcg (2,000 unit) capsule hawthorn 500 mg capsule 500 mg PO DAILY 06/23/2302/21 History Held on 01/31/25. Instructions: discuss with primary care provider magnesium citrate 100 mg capsule 100 mg PO DAILY 01/0201/30/25 History Allergies Allergy/AdvReac Type Severity Reaction Status Date / Time Opioids - Morphine Analogues AdvReac Intermediate ADR-Nausea Verified 01/27/25 08:47 PFSH Acute PFSH: Medical History Hypertension Family History Father Cancer skin Mother Cancer myeloma Social History Smoking and tobacco/nicotine status: current every day tobacco/nicotine user cigarettes Packs smoked per day: 0.5 Alcohol intake: never Substance/Drug Use: current Substance/Drug use frequency: daily Vitals/I&O/Wt Last Vital Signs Temp 98.0 F 01/30/25 19:28 Pulse 73 01/31/25 07:03 Resp 16 01/31/25 07:03 BP 170/81 01/31/25 07:03 Pulse Ox 95 01/31/25 07:03 O2 Del Method Room Air 01/31/25 07:03 01/30/25 01/31/25 01/31/25 22:59 06:59 14:59 Intake Total 801.667 / 801.667 Balance 801.667 / 801.667 Weight last 48 hrs Weight 130 lb Physical Exam Const: COMMON NORMALS: no acute distress and patient oriented x3 GENERAL APPEARANCE: cooperative ORIENTATION/CONSCIOUSNESS: Yes awake, Yes oriented to person, Yes oriented to place and Yes oriented to time Chest: COMMONS NORMALS: normal inspection of the chest and normal palpation of entire chest wall CHEST: Yes Symmetrical chest wall rise Resp: COMMON NORMALS: normal respiratory effort, No retractions, No use of ac cessory muscles and clear to auscultation bilaterally AUSCULTATION: clear to auscultation bilaterally Cardio: COMMON NORMALS: regular rate, regular rhythm, S1 normal heart sound present, S2 normal heart sound present, No gallops present (Cardio), No clicks present (Cardio), No murmurs present (Cardio) and No rub (Cardio) RATE: regular rate RHYTHM: regular rhythm HEART SOUNDS: S1 normal heart sound present and S2 normal heart sound present PERIPHERAL PULSES: radial pulses present positive right 2+ and femoral pulses present positive right 2+ Neuro: COMMON NORMALS: patient oriented x3 and moves all extremities SENSORIUM/ORIENTATION: Yes oriented to person, Yes oriented to place and Yes oriented to time Skin: WOUNDS: Yes surgical site (no hematoma palpable) Details: no odor Hospital Course Hospital Course She underwent coronary angiogram on 01/30/2025: Patent left main, proximal to mid LAD had MUSSEL OPENER treated with VAN x 2. Left circumflex patent, previously placed OM stent patent however distally noted moderate stenosis. Small size nondominant RCA patent. This morning she is feeling well, no chest pain. Blood pressure remains uncontrolled. Will discharge her on amlodipine 10 mg daily, add metoprolol 12.5 mg twice a day. She should continue aspirin, Plavix and atorvastatin 40 mg daily. Lifting restrictions with the right arm discussed and precautions on not stopping aspirin and Plavix for even 1 dose. Follow-up with cardiology nurse practitioner in 7 to 10 days in the clinic. Maintain blood pressure log and bring it to that visit. SSS Data Data Completed and Pending: Pending at discharge Category Date Time Status GRANITE CUTTER request for service Routin e Exams 01/30/25 06:00 Taken Discharge Plan Discharge Patient Disposition: Home Prescriptions: New atorvastatin 40 mg Tablet 40 mg PO BEDTIME Qty: 90 3RF clopidogrel 75 mg Tablet 75 mg PO DAILY Qty: 90 3RF aspirin 81 mg Tablet,Delayed Release (Dr/Ec) 81 mg PO DAILY Qty: 90 3RF amlodipine 10 mg Tablet 10 mg PO DAILY Qty: 90 3RF metoprolol tartrate 25 mg tablet 12.5 mg PO BID Qty: 60 3RF Continued Medical marijuana 1 pill PO BEDTIME cholecalciferol (vitamin D3) 50 mcg (2,000 unit) capsule 50 mcg PO DAILY magnesium citrate 100 mg capsule 100 mg PO DAILY Held hawthorn 500 mg capsule 500 mg PO DAILY Hold Instructions: discuss with primary care provider No Action polyethylene glycol 3350 [Miralax] 17 gram/dose powder 17 g PO DAILY Qty: 850 0RF Discharge Orders: Discharge Order (Routine); Ordered 01/31/25 Ordered By: Selin Lott Referrals: Paola George NP [Nurse Practitioner] - 02/09/25 3:30 pm Donna Bustamante NP [Primary Care Provider] - 02/06/25 10:00 am Diet: Advance as tolerated Activity: Resume usual activity Patient Instructions: Metoprolol (By mouth) (Lopressor, Toprol XL), Aspirin (By mouth), Amlodipine (By mouth), Atorvastatin (By mouth) (Lipitor, Atorvaliq), Clopidogrel (By mouth) (Plavix), Coronary Artery Disease (DC), Coronary Angioplasty (DC), Post Angiogram Home Care Instructions Activity Restrictions/Additional Instructions: No lifting over 5 pounds with right arm for the next 48 hours. Print Language: Bolivian Attestations Medical Necessity Statement*: Discharge today Time Spent in Patient Care*: less than 30 min Quality Metrics Clinical Quality Measures: [ No reported AMI, CVA or VTE this stay ] Coding Level of Care Code Acute Code for Chg Fwd
--- NOTE | 2025-01-31 09:55 | PC.NURSE ---
Discharge paperwork is discussed with present. Educated on follow up visits, medication review, coronary angioplasty coronary artery disease, and post angiogram home care instructions.
== END 2025-01-31 10:15 | disposition home or self-care (01) ==
LOC: CCL 07:00 → CSU 09:40
PROVIDERS: PCP Nurse Practitioner Family; Visit Provider Internal Medicine
DX: I25.10 Atherosclerotic heart disease of native coronary artery without angina pectoris (principal); I25.2 Old myocardial infarction; I25.82 Chronic total occlusion of coronary artery; I10 Essential (primary) hypertension; F17.210 Nicotine dependence, cigarettes, uncomplicated; Z95.5 Presence of coronary angioplasty implant and graft
CPT/HCPCS: 36415; 80048; 85025; 85347; 92978; 93458; 96374; 96375; 96376; 99152; 99153; C1725; C1753; C1769; C1874; C1887; C1894; C9600; J0360; J1644; J2250; J2371; J2405; J3010; J3490; J7030; J9999; Q0163; Q9967

== ENCOUNTER 2025-02-16 09:02 | Outpatient (CLI) | payer MEDICARE, SELFPAY | END 2025-02-16 09:03 | disposition home or self-care (01) | PROVIDERS: Visit Provider Internal Medicine | DX: R94.39 Abnormal result of other cardiovascular function study (principal); Z01.818 Encounter for other preprocedural examination; I10 Essential (primary) hypertension; R58 Hemorrhage, not elsewhere classified; I25.10 Atherosclerotic heart disease of native coronary artery without angina pectoris; F17.210 Nicotine dependence, cigarettes, uncomplicated | CPT/HCPCS: 36415; 80048; 85025; 85610; 99213 ==

== ENCOUNTER 2025-04-30 05:00 | Outpatient (RCR) | payer MEDICARE, SELFPAY | END 2025-05-29 23:59 | disposition home or self-care (01) | LOC: GPT 05:00 | PROVIDERS: PCP Nurse Practitioner Family; Visit Provider Family Medicine | DX: M51.362 Other intervertebral disc degeneration, lumbar region with discogenic back pain and lower extremity pain (principal); G57.02 Lesion of sciatic nerve, left lower limb | CPT/HCPCS: 97161 ==

== ENCOUNTER → 2025-05-09 10:30 | Outpatient (BNVA) | payer MEDICARE, SELFPAY | PROVIDERS: PCP Nurse Practitioner Family; Visit Provider Family Medicine | DX: E87.6 Hypokalemia (principal); I10 Essential (primary) hypertension; Z95.5 Presence of coronary angioplasty implant and graft; I25.10 Atherosclerotic heart disease of native coronary artery without angina pectoris; Z51.81 Encounter for therapeutic drug level monitoring | CPT/HCPCS: 80048; 80061; 85027 ==

== ENCOUNTER 2025-05-29 14:46 | Emergency (ER) | payer MEDICARE, SELFPAY ==
[2025-05-29 14:59] VITALS: BP 188/97; PULSE 65; TEMP 36.6; O2SAT 98
--- NOTE | 2025-05-29 15:04 | ECG_ITS ---
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 Measurements Intervals [place] Rate: 63 P: 68 WI: 161 QRS: -44 QRSD: 113 T: 139 QT: 435 QTc: 447 Interpretive Statements SINUS RHYTHM POSSIBLE RIGHT ATRIAL ENLARGEMENT [0.25mV P-WAVE] LEFT ATRIAL ENLARGEMENT [-0.15mV P-WAVE IN V1/V2] LEFT AXIS DEVIATION [QRS AXIS < -30] LEFT VENTRICULAR HYPERTROPHY AND ST-T CHANGE [VOLTAGE CRITERIA PLUS ST/T ABNORMALITY] POSSIBLE SEPTAL MYOCARDIAL INFARCTION , PROBABLY OLD [30 ms Q WAVE IN V1/V2] INTERPRETATION BASED ON A DEFAULT AGE OF 40 YEARS Compared to ECG 01/02/2025 12:10:36 Left-axis deviation now present ST (T wave) deviation still present Myocardial infarct finding still present Electronically Signed On 06-01-2025 09:35:08 CDT by Sandeep Anaya M.D. [id number]
--- NOTE | 2025-05-29 15:26 | CTR_ITS ---
PROCEDURE INFORMATION: Exam: CT Head Without Contrast Exam date and time: 05/29/2025 3:46 PM Age: 69 years old Clinical indication: Left neck mass, dizziness, 190/102 elevated blood pressure; Additional info: Dizzy TECHNIQUE: Imaging protocol: Computed tomography of the head without contrast. Radiation optimization: All CT scans at this facility use at least one of these dose optimization techniques: automated exposure control; mA and/or kV adjustment per patient size (includes targeted exams where dose is matched to clinical indication); or iterative reconstruction. COMPARISON: US soft tissue head neck [id number] 07/20/2024 6:48 AM RADIATION DOSE METRICS: Total DLP (mGy-cm): 175.2 FINDINGS: Brain: Mild generalized cortical volume loss. No hemorrhage. Periventricular and subcortical white matter hypodensities likely represent chronic small vessel ischemic changes. No mass effect. Cerebral ventricles: No ventriculomegaly. Paranasal sinuses: Visualized sinuses are unremarkable. No fluid levels. Mastoid air cells: Visualized mastoid air cells are well aerated. Bones: Unremarkable. No acute fracture. Soft tissues: Unremarkable. Vasculature: Vascular calcifications along the carotid siphons. CT/CT head wo con* [id number] IMPRESSION: No acute intracranial abnormality.
--- NOTE | 2025-05-29 15:26 | CTR_ITS ---
PROCEDURE INFORMATION: Exam: CT Neck With Contrast Exam date and time: 05/29/2025 3:46 PM Age: 69 years old Clinical indication: Mass, lump, or swelling in neck; --left neck mass, dizziness, 190/102 elevated blood pressure TECHNIQUE: Imaging protocol: Computed tomography of the neck with contrast. Radiation optimization: All CT scans at this facility use at least one of these dose optimization techniques: automated exposure control; mA and/or kV adjustment per patient size (includes targeted exams where dose is matched to clinical indication); or iterative reconstruction. Contrast material: OMNI 350; Contrast volume: 100 ml; Contrast route: INTRAVENOUS (IV); COMPARISON: CT neck w con* [id number] 08/22/2024 10:22 AM RADIATION DOSE METRICS: Total DLP (mGy-cm): 175.2 FINDINGS: Salivary glands: Redemonstrated enhancing mass within the left parotid gland measuring 1.8 x 2.0 x 2.4 cm, previously 1.5 x 1.8 x 2.4 cm. Pharynx: Unremarkable. No significant tonsillar enlargement. Larynx: Unremarkable. Epiglottis is normal. Thyroid: Similar thyromegaly with a diffusely heterogeneous appearance of the thyroid. Trachea: Visualized trachea is unremarkable. Lungs: Unremarkable as visualized. Lymph nodes: Increased prominence of the left level IIb cervical lymph node, technically nonenlarged by size criteria. Vasculature: Atherosclerotic plaques along the visualized aortic arch. Atherosclerotic plaques along the origin of the right internal carotid artery with less than 50% stenosis. Bones/joints: Multilevel cervical spondylosis, similar to prior. No acute osseous findings. Soft tissues: Unremarkable. No significant soft tissue swelling. CT/CT neck w con* [id number] IMPRESSION: 1. Similar to minimally increased size of an enhancing left parotid mass. As before, this could represent a primary parotid neoplasm such as pleomorphic adenoma or Warthin's tumor or possibly low-grade mucoid epidermoid carcinoma. If not performed previously, correlation with tissue sampling would be of benefit for more definitive diagnosis. 2. Interval increase in size of the prominent but nonenlarged left level IIb cervical lymph node, possibly reactive. Consider follow-up ultrasound or CT in 2-3 months to evaluate for stability. 3. Similar thyroid megaly with heterogeneous appearance of the thyroid. Recommend correlation with nonemergent dedicated thyroid ultrasound.
--- NOTE | 2025-05-29 15:27 | W.ED.GENADLT ---
HPI - General Adult General: Chief complaint: General Medical Stated complaint: high bp Time Seen by Provider: 05/29/25 15:19 Source: patient Mode of arrival: ambulatory Limitations: no limitations History of Present Illness: 69-year-old female states that she has been having high blood pressures since Thursday. States she has had some mild headaches and some dizziness as well. She denies any slurred speech or focal weaknesses. Denies any chest pain or vomiting or diarrhea. Associated symptoms: Reports headache(s); Deny chest pain, dyspnea, nausea, rash or vomiting Related Data Home Medications ?Medication ?Instructions ?Recorded ?Confirmed Medical marijuana 1 pill PO BEDTIME 06/04/21 05/29/25 cholecalciferol (vitamin D3) 50 50 mcg PO DAILY 06/23/23 05/29/25 mcg (2,000 unit) capsule [id number]-[id number]-afzq325-hyal 1 tab PO DAILY 05/09/25 05/29/25 750 mg-100 mg-125 mg-1.65 mg tablet (Glucosamine Chondroit Complx Advan) losartan 25 mg tablet 25 mg PO DAILY 05/29/25 05/29/25 magnesium 200 mg tablet 200 mg PO DAILY 05/29/25 05/29/25 polyethylene glycol 3350 17 17 g PO DAILY PRN Constipation 05/29/25 05/29/25 gram/dose oral powder (Miralax) Previous Rx's ?Medication ?Instructions ?Recorded aspirin 81 mg tablet,delayed 81 mg PO DAILY #90 tabs 01/31/25 release atorvastatin 40 mg tablet 40 mg PO BEDTIME #90 tabs 01/31/25 clopidogrel 75 mg tablet 75 mg PO DAILY #90 tabs 01/31/25 metoprolol tartrate 25 mg tablet 12.5 mg (1/2 x 25 mg) PO BID #60 01/31/25 tabs baclofen 10 mg tablet 10 mg PO BID PRN muscle spasm #30 05/09/25 tabs Allergies Allergy/AdvReac Type Severity Reaction Status Date / Time Opioids - Morphine Analogues AdvReac Intermediate ADR-Nausea Verified 05/29/25 15:08 Review of Systems Const: Denies: fever(s), chills, body aches or change in appetite Eyes: Denies: blurry vision or eye discomfort ENMT: Denies: throat pain or dental pain Card: Denies: chest pain Resp: Denies: dyspnea GI: Denies: abdominal pain, nausea, vomiting or diarrhea Musc: Denies: neck pain or back pain Skin/Breast: Denies: rash Neuro: Reports: headache(s) PFSH ED PFSH: Medical History Hypertension Surgical History Stented coronary artery Family History Father Cancer skin Mother Cancer myeloma Social History Smoking and tobacco/nicotine status: current every day tobacco/nicotine user (less than 1/2 pack a day ) cigarettes Packs smoked per day: 0.5 Alcohol intake: never Substance/Drug Use: current Substance/Drug use frequency: daily Physical Exam Const: COMMON NORMALS: no acute distress, patient oriented x3 and healthy appearing HENMT: COMMON NORMALS: normocephalic and atraumatic HEAD & SCALP: normocephalic and atraumatic Eye: COMMON NORMALS: Equal, round and reactive pupils present and EOMs intact bilaterally VISUAL GRIFFITH: No peripheral vision loss, No central vision loss, No left visual field cut, No right visual field cut, No bitemporal visual field cut, No binasal visual field cut and No visual field cut by quadrant PUPIL: Yes Equal, round and reactive pupils present Neck/C-Spine: COMMON NORMALS: full ROM and supple OTHER: Mass palpated on the left neck likely lymph node Chest: COMMONS NORMALS: normal inspection of the chest Resp: COMMON NORMALS: normal respiratory effort, No retractions, No use of accessory muscles and clear to auscultation bilaterally AUSCULTATION: clear to auscultation bilaterally Cardio: COMMON NORMALS: regular rate, regular rhythm and No murmurs present (Cardio) RATE: regular rate RHYTHM: regular rhythm Extremity: COMMON NORMALS: normal to inspection and full ROM Neuro: COMMON NORMALS: patient oriented x3, moves all extremities and no focal motor deficits CRANIAL NERVES: Yes CN normal except as noted MOTOR EXAM: 5/5 motor strength present throughout Psych: COMMON NORMALS: mental status grossly normal, Normal thought process present and cooperative THOUGHT PROCESS: Normal thought process present Skin: COMMON NORMALS: no rashes or lesions noted and no wounds GENERAL SKIN EXAM: no rashes or lesions noted Course Vital Signs: Vital signs: Vital Signs Temperature 97.8 F 05/29/25 14:59 Pulse Rate 71 05/29/25 17:32 Respiratory Rate 16 05/29/25 17:32 Blood Pressure 186/70 05/29/25 17:32 Pulse Oximetry 97 05/29/25 17:32 Oxygen Delivery Me thod Room Air 05/29/25 14:59 MDM - General Adult Medical Decision Making Patient presents with back pain she also has had an hypertension, some dizziness she feels much improved here after blood pressure improved she has no signs of a stroke she is able to ambulate without difficulty here CT is normal she is stable for discharge she has follow-up with her health information technologist this week to go over her blood pressure meds she is to take a log of her blood pressure in the meantime. Return if worsening. Medical Records I reviewed the patient's medical records. Lab Data I reviewed the patient's lab results. 05/29/25 16:46 05/29/25 16:[address] 05/29/25 15:26 IMPRESSION: No acute intracranial abnormality. Neck CT 05/29/25 15:26 IMPRESSION: 1. Similar to minimally increased size of an enhancing left parotid mass. As before, this could represent a primary parotid neoplasm such as pleomorphic adenoma or Warthin's tumor or possibly low-grade mucoid epidermoid carcinoma. If not performed previously, correlation with tissue sampling would be of benefit for more definitive diagnosis. 2. Interval increase in size of the prominent but nonenlarged left level IIb cervical lymph node, possibly reactive. Consider follow-up ultrasound or CT in 2-3 months to evaluate for stability. 3. Similar thyroid megaly with heterogeneous appearance of the thyroid. Recommend correlation with nonemergent dedicated thyroid ultrasound. Laboratory Results WBC 6.58 10^3/uL (3.29-11.43) 05/29/25 16:46 RBC 5.05 10^6/uL (3.85-5.65) 05/29/25 16:46 Hgb 15.10 g/dL (11.27-16.99) 05/29/25 16:46 Hct 45.9 % (36-47) 05/29/25 16:46 MCV 90.9 fl (85-98) 05/29/25 16:46 MCH 29.9 pg (27-33) 05/29/25 16:46 MCHC 32.9 g/dL (30-55) 05/29/25 16:46 RDW 12.5 % (12.1-15.1) 05/29/25 16:46 Plt Count 152 10^3/cmm (157-399) L 05/29/25 16:46 MPV 10.3 fL (7.4-10.4) 05/29/25 16:46 Neut % (Auto) 54.1 % 05/29/25 16:46 Lymph % (Auto) 35.3 % 05/29/25 16:46 [place] % (Auto) 9.0 % 05/29/25 16:46 Eos % (Auto) 0.9 % 05/29/25 16:46 Baso % (Auto) 0.5 % 05/29/25 16:46 Neut # (Auto) 3.57 10^3/uL (1.8-7.7) 05/29/25 16:46 Lymph # (Auto) 2.3 10^3/uL (0.8-4.8) 05/29/25 16:46 [place] # (Auto) 0.6 10^3/uL (0.2-0.9) 05/29/25 16:46 Eos # (Auto) 0.1 10^3/uL (0.0-0.8) 05/29/25 16:46 Baso # (Auto) 0.0 10^3/uL (0.0-0.1) 05/29/25 16:46 Nucleated RBC % (auto) 0 % 05/29/25 16:46 Nucleated RBCs # 0.0 /100WBC 05/29/25 16:46 Sodium 135 mmol/L (136-145) L 05/29/25 16:46 Potassium 4.3 mmol/L (3.5-5.1) 05/29/25 16:46 Chloride 97 mmol/L (98-107) L 05/29/25 16:46 Carbon Dioxide 29 mmol/L (22-29) 05/29/25 16:46 Anion Gap 13.3 (5-19) 05/29/25 16:46 BUN 19 mg/dL (8-23) 05/29/25 16:46 Creatinine 0.8 mg/dL (0.5-0.9) 05/29/25 16:46 GFR Calculation 71.3 mL/min (90-130) L 05/29/25 16:46 Glucose 102 mg/dL (65-115) 05/29/25 16:46 Calculated Osmolality 282 mOsm/kg (285-295) L 05/29/25 16:46 Calcium 9.3 mg/dL (8.5-10.5) 05/29/25 16:46 Total Bilirubin 0.2 mg/dL (0.15-1.2) 05/29/25 16:46 AST 20 U/L (0-32) 05/29/25 16:46 ALT 17 U/L (0-33) 05/29/25 16:46 Alkaline Phosphatase 87 U/L (35-105) 05/29/25 16:46 Total Protein 7.2 g/dL (6.6-8.7) 05/29/25 16:46 Albumin 3.9 g/dL (3.5-5.2) 05/29/25 16:46 Globulin 3.3 g/dL (1.3-4.6) 05/29/25 16:46 All radiology interpretation(s) finalized by discharge Discharge Plan Discharge Patient Disposition: Home Clinical Impression: Back pain, Dizziness Hypertension Qualifiers: Hypertension type: primary hypertension Qualified Code(s): I10 - Essential (primary) hypertension Condition: Stable Prescriptions: No Action Medical marijuana 1 pill PO BEDTIME Glucos Chond Cplx Advanced 750 mg-100 mg- 125 mg-1.65 mg tablet 1 tab PO DAILY baclofen 10 mg tablet 10 mg PO BID PRN (Reason: muscle spasm) Qty: 30 0RF Rx Instructions: Can cause sleepiness or sedation. cholecalciferol (vitamin D3) 50 mcg (2,000 unit) capsule 50 mcg PO DAILY atorvastatin 40 mg Tablet 40 mg PO BEDTIME Qty: 90 3RF clopidogrel 75 mg Tablet 75 mg PO DAILY Qty: 90 3RF aspirin 81 mg Tablet,Delayed Release (Dr/Ec) 81 mg PO DAILY Qty: 90 3RF metoprolol tartrate 25 mg tablet 12.5 mg PO BID Qty: 60 3RF magnesium 200 mg Tablet 200 mg PO DAILY losartan 25 mg tablet 25 mg PO DAILY polyethylene glycol 3350 [Miralax] 17 gram/dose powder 17 g PO DAILY PRN (Reason: Constipation) Discharge Orders: Discharge ED (Routine); Ordered 05/29/25 Ordered By: Nicolás Castanon Referrals: Donna Bustamante NP [Primary Care Provider, [facility]] - 4-7 days Discharge Diet: Advance as tolerated Discharge Activity: Resume usual activity Patient Instructions: Hypertension (ED), Back Pain (ED) Print Language: Polish Coding Level of Care Code ED Solar Process Engineer for Ahmet Waggoner NIH stroke score NIHSS Level Of Consciousness - 1a: 0 Level Of Consciousness Questions - 1b: Both Correct Level Of Consciousness Commands - 1c: Both Correct Best Gaze - 2: Normal Visual Griffith - 3: No Visual Loss Facial Palsy - 4: Normal Motor Arm Right - 5: No Drift Motor Arm Left - 5: No Drift Motor Leg Right - 6: No Drift Motor Leg Left - 6: No Drift Limb Ataxia - 7: Absent Sensory - 8: Normal Best Language - 9: No Aphasia Extinction And Inattention - 11: 0
[2025-05-29] MEDS: iohexol 350 mg/mL 500 mL Btl (per mL) IV (15:49)
[2025-05-29] MEDS: hyDRALAzine 20 mg/mL INJ 1 mL 10 MG IVP ×2 (15:58→17:10)
[2025-05-29] MEDS: meclizine 25 mg tablet 50 MG PO (15:58)
[2025-05-29 16:54] LABS: Basophils % 0.5 %; Eosinophils # 0.1 10^3/uL (0.0-0.8); Eosinophils % 0.9 %; Hematocrit 45.9 % (36-47); Lymphocytes # 2.3 10^3/uL (0.8-4.8); Lymphocytes % 35.3 %; Mean Corpuscular HGB Conc 32.9 g/dL (30-55); Mean Corpuscular Hemoglobin 29.9 pg (27-33); Mean Corpuscular Volume 90.9 fl (85-98); Mean Platelet Volume 10.3 fL (7.4-10.4); Monocytes # 0.6 10^3/uL (0.2-0.9); Neutrophils # 3.57 10^3/uL (1.8-7.7); Neutrophils % 54.1 %; Nucleated Red Blood Cells % 0 %; Platelet Count 152 10^3/cmm (157-399); Red Blood Count 5.05 10^6/uL (3.85-5.65); Red Cell Distribution Width 12.5 % (12.1-15.1); White Blood Count 6.58 10^3/uL (3.29-11.43)
[2025-05-29 17:13] LABS: Alanine Aminotransferase 17 U/L (0-33); Albumin Level 3.9 g/dL (3.5-5.2); Alkaline Phosphatase 87 U/L (35-105); Aspartate Amino Transferase 20 U/L (0-32); Blood Urea Nitrogen 19 mg/dL (8-23); Calcium 9.3 mg/dL (8.5-10.5); Carbon Dioxide 29 mmol/L (22-29); Chloride 97 mmol/L (98-107); Globulin 3.3 g/dL (1.3-4.6); Glomerular Filtration Rate 71.3 mL/min (90-130); Glucose 102 mg/dL (65-115); Osmolality Calculated 282 mOsm/kg (285-295); Sodium 135 mmol/L (136-145); Total Bilirubin 0.2 mg/dL (0.15-1.2); Total Protein 7.2 g/dL (6.6-8.7)
[2025-05-29 17:15] LABS: Anion Gap 13.3 (5-19); Potassium 4.3 mmol/L (3.5-5.1)
[2025-05-29 17:32] VITALS: BP 186/70; PULSE 71; RESP 16; O2SAT 97
== END 2025-05-29 17:31 | disposition home or self-care (01) ==
PROVIDERS: Emergency Provider Emergency Medicine; PCP Nurse Practitioner Family
DX: M54.9 Dorsalgia, unspecified (principal); R42 Dizziness and giddiness; I10 Essential (primary) hypertension; Z79.02 Long term (current) use of antithrombotics/antiplatelets; Z79.82 Long term (current) use of aspirin; F17.210 Nicotine dependence, cigarettes, uncomplicated
CPT/HCPCS: 36415; 70450; 70491; 80053; 85025; 93005; 96374; 96376; 99285; J0360; J8597; J9999

== ENCOUNTER → 2025-06-01 14:12 | Outpatient (BNVA) | payer MEDICARE, SELFPAY | PROVIDERS: PCP Nurse Practitioner Family; Visit Provider Internal Medicine | DX: Z01.818 Encounter for other preprocedural examination (principal); I25.10 Atherosclerotic heart disease of native coronary artery without angina pectoris; I10 Essential (primary) hypertension; Z79.02 Long term (current) use of antithrombotics/antiplatelets; Z79.82 Long term (current) use of aspirin; Z95.5 Presence of coronary angioplasty implant and graft; F17.210 Nicotine dependence, cigarettes, uncomplicated | CPT/HCPCS: 99214 ==

== ENCOUNTER → 2025-09-19 13:12 | Outpatient (BNVA) | payer MEDICARE, SELFPAY | PROVIDERS: PCP Nurse Practitioner Family; Visit Provider Nurse Practitioner Family | DX: I25.10 Atherosclerotic heart disease of native coronary artery without angina pectoris (principal); Z95.5 Presence of coronary angioplasty implant and graft; F17.210 Nicotine dependence, cigarettes, uncomplicated | CPT/HCPCS: 99214 ==